=== PATIENT | male | born 1975 ===

== ENCOUNTER 2017-07-26 01:50 | Emergency (ER) | payer OTHER ==
[2017-07-26 02:03] VITALS: BP 133/86
--- NOTE | 2017-07-26 04:22 | Emergency Department Report ---
ED Laceration HPI - HPI Chief Complaint: Laceration/Recheck/Suture Stated Complaint: RT HAND LAC Time Seen by Provider: 07/26/17 04:18 Occurred When: Today Location: Upper Extremity (right hand) Severity: severe Tetanus Status: Not up to Date Laceration Symptoms: Yes Pain, No Foreign Body Sensation, No Numbness, No Weakness Other History: This is a 42 y.o. male presents with laceration to right hand. Patient states he was trying to kill a bug on the ceiling in house around 1:00 AM with a mop. The end of the mop didn't have a cap on it and as he pushed up on ceiling the mop pushed into right hand. His girlfriend states it happened so fast, she washed the wound with cold water and flushed with peroxide. They placed a clean towel for pressure and came to ER. Patient states pain is 10/10, constantly. The wound is deep and the tendon is visual. Patient denies numbness or tingling distal to wound. ED Review of Systems ROS: Stated complaint: RT HAND LAC Other details as noted in HPI Constitutional: denies: chills, fever Respiratory: denies: cough, shortness of breath, wheezing Cardiovascular: denies: chest pain, palpitations Gastrointestinal: denies: abdominal pain, nausea, diarrhea Skin: other (laceration to palm of right hand) Neurological: denies: headache, weakness, numbness, paresthesias, confusion, abnormal gait, vertigo ED Past Medical Hx - Past Medical History Previous Medical History?: Yes Hx Diabetes: Yes - Surgical History Past Surgical History?: No - Social History Smoking Status: Former Smoker Substance Use Type: Alcohol, Marijuana - Medications Home Medications: Home Medications Medication Instructions Recorded Confirmed Last Taken Type Sulfamethoxazole/Trimethoprim 1 each PO BID 10 Days #20 tablet 07/26/17 Unknown Rx [Bactrim DS TAB] Laceration Physical Exam - Exam General: Vital signs noted. No distress. Alert and acting appropriately. Laceration Location: Upper Extremity (right hand) Laceration Exam: Yes Exposed Tendon, Vessel, or Nerve, Yes Normal Distal CMS, No Foreign Body, No Tendon Injury ED Course Vital Signs 07/26/17 07/26/17 01:58 02:07 Temperature 98.0 F 98 F Pulse Rate 91 H 91 H Respiratory 18 18 Rate Blood Pressure 133/86 133/86 O2 Sat by Pulse 97 97 Oximetry - Laceration /Wound Repair Right Volar Hand Wound Location: upper extremity Wound Length (cm): 3 Wound's Depth, Shape: into muscle, flap Wound Explored: no foreign body removed Irrigated w/ Saline (ccs): 10 Betadine Prep?: Yes Anesthesia: 1% Lidocaine (2%) Volume Anesthetic (ccs): 2 Wound Repaired With: sutures Suture Size/Type: 4:0, proline (blue monofilament) Number of Sutures: 14 Sterile Dressing Applied?: Yes ED Medical Decision Making - Radiology Data Radiology results: image reviewed IMPRESSION: Soft tissue laceration overlying the ventral aspect of the mid palm. No evidence of fracture or radiopaque foreign body. Mild arthritic changes of the PIP joint of the 5th finger. - Medical Decision Making This is a 42 y.o. male assessed by me. He is in stable condition. Laceration 3 cm on right volar hand from mop handle. Given norco 5/325 mg po once in ER for pain. Xray of hand IMPRESSION: Soft tissue laceration overlying the ventral aspect of the mid palm. No evidence of fracture or radiopaque foreign body. Mild arthritic changes of the PIP joint of the 5th finger. Read by radiologist. Laceration closed with 14 sutures and sterile dressing applied. Given tetanus. Discharged home in stable condition. Started on keflex. Return to PCP or ER in 7 days to have sutures removed. Discussed S/S for return to ER. Critical care attestation.: If time is entered above; I have spent that time in minutes in the direct care of this critically ill patient, excluding procedure time. ED Disposition Clinical Impression: Laceration of hand with tendon involvement excluding fingers Qualifiers: Encounter type: initial encounter Laterality: right Qualified Code(s): S61.411A - Laceration without foreign body of right hand, initial encounter; S66.921A - Laceration of unspecified muscle, fascia and tendon at wrist and hand level, right hand, initial encounter; S66.921A - Laceration of unspecified muscle, fascia and tendon at wrist and hand level, right hand, initial encounter Disposition: TO HOME OR SELFCARE Is pt being admited?: No Does the pt Need Aspirin: No Condition: Stable Instructions: Laceration (ED), Suture Care (ED) Additional Instructions: Avoid applying topical lotions or creams on sutures, may cause irritation and decrease healing. Return to Primary Care Provider or ER in 7 days to have sutures removed. Return to ER if red, swollen, foul discharge, or fever. Prescriptions: Sulfamethoxazole/Trimethoprim [Bactrim DS TAB] 1 each PO BID 10 Days #20 tablet Referrals: PRIMARY CARE, [Primary Care Provider] - 3-5 Days Time of Disposition: 07:06 Print Language: YI
--- NOTE | 2017-07-26 04:49 | XRay Report ---
FINAL REPORT EXAM: XR HAND 3+V RT HISTORY: deep laceration with tendon involvement TECHNIQUE: Three views of the right hand were obtained. FINDINGS: There is no evidence of fracture or dislocation. There is no evidence of radiopaque foreign body. There is mild arthritic changes of the proximal interphalangeal joint of the 5th finger. The soft tissues reveal a laceration overlying the ventral aspect of the mid palm. IMPRESSION: Soft tissue laceration overlying the ventral aspect of the mid palm. No evidence of fracture or radiopaque foreign body. Mild arthritic changes of the PIP joint of the 5th finger.
[2017-07-26] MEDS ORDERED: NORCO 5/325 PO ONE (05:05)
[2017-07-26] MEDS ORDERED: XYLOCAINE 2% INFILTRATI ONE (05:30)
[2017-07-26] MEDS ORDERED: BOOSTRIX IM ONE (06:58)
== END 2017-07-26 07:23 | disposition home or self-care (01) ==
LOC: ED 01:50
DX: S61.411A Laceration without foreign body of right hand, initial encounter (principal); E11.9 Type 2 diabetes mellitus without complications; Z87.891 Personal history of nicotine dependence; W22.8XXA Striking against or struck by other objects, initial encounter; Y93.89 Activity, other specified; Y92.89 Other specified places as the place of occurrence of the external cause; Y99.8 Other external cause status
CPT/HCPCS: 90471; 90715